=== PATIENT | female | born 1940 | race Caucasian/White ===

== ENCOUNTER 2018-02-12 20:58 | Emergency (ER) | payer OTHER ==
[~2018-02-12] VITALS: Ht 154.9 cm; Wt 49.9 kg
[~2018-02-12 20:58] MED LIST: ADULT ASPIRIN81 MG PO; ALLOPURINOL100 MG PO; AMLODIPINE BESY10 MG PO; ARICEPT10 M1 PO; ASPIRIN81 M3 PO; FAMOTIDINE20 MG PO; METOPROLOL TART25 MG PO; ONDANSETRO4 MG/UDTAB SL; POTASSIUM CHLO10 ME1 PO; PRAVASTATIN SOD40 MG PO; VITAMIN C500 M1; VITAMIN D-32000 UNIT PO; WOMEN'S DAILY1 EAC1 PO; Z.0.ALLOPURINOL100 M PO; Z.0.CARVEDILOL6.25 M PO; Z.0.COZAAR100 MG PO; Z.0.COZAAR25 MG; Z.0.CRESTOR10 MG PO; Z.0.DEXILANT30 MG PO; Z.0.WELLBUTRIN SR150 PO
[2018-02-12] MEDS ORDERED: LEVOFLOXACIN 750MG/D5W 150ML 150 ML IV SCH (22:30)
[2018-02-12] MEDS ORDERED: LEVOFLOXACIN 750MG/D5W 150ML 150 ML IV ONE (23:00)
[2018-02-12 23:10] VITALS: BP 144/70
== END 2018-02-12 23:30 | disposition home or self-care (01) ==
LOC: FSED 20:58
DX: S00.83XA Contusion of other part of head, initial encounter (principal); S30.0XXA Contusion of lower back and pelvis, initial encounter; W01.0XXA Fall on same level from slipping, tripping and stumbling without subsequent striking against object, initial encounter; Y92.008 Other place in unspecified non-institutional (private) residence as the place of occurrence of the external cause; N30.90 Cystitis, unspecified without hematuria; G30.9 Alzheimer's disease, unspecified; F02.80 Dementia in other diseases classified elsewhere, unspecified severity, without behavioral disturbance, psychotic disturbance, mood disturbance, and anxiety
CPT/HCPCS: 70450; 72131; 74176; 80053; 82553; 84484; 85025; 87086; 99284

== ENCOUNTER 2018-03-29 19:45 | Emergency (ER) | payer OTHER ==
[~2018-03-29] VITALS: Ht 154.9 cm; Wt 49.9 kg
--- NOTE | 2018-03-29 21:33 | Diagnostic Imaging Report ---
EXAM: PELVIS AP 1-2 VIEWS INDICATION: Fall today COMPARISON: None FINDINGS: BONES: No acute fractures. JOINTS: No malalignment. SOFT TISSUES: Surgical clips project over the abdomen and bilateral groins. Marked vascular calcifications. Oval calcification projected over the right iliac is likely an injection granuloma. IMPRESSION: No evidence of a pelvic fracture. Signed by: Dr. Muriel Horan M.D. on 03/29/2018 9:29 PM
--- NOTE | 2018-03-29 21:36 | Diagnostic Imaging Report ---
EXAM: CHEST SINGLE (PORTABLE), AP 1 view INDICATION: Fall, shoulder pain COMPARISON: None FINDINGS: LINES/TUBES: None LUNGS: No consolidations or edema. PLEURA: No effusions or pneumothorax. HEART AND MEDIASTINUM: Normal size and contour. BONES AND SOFT TISSUES: Questionable nondisplaced fracture of the proximal left humeral neck. IMPRESSION: No acute cardiopulmonary abnormality. Questionable nondisplaced fracture of the proximal left humeral neck. Recommend dedicated left shoulder views. Signed by: Dr. Muriel Horan M.D. on 03/29/2018 9:32 PM
--- NOTE | 2018-03-29 21:39 | Diagnostic Imaging Report ---
EXAM: SHOULDER LEFT 2 views, AP and Limited scapular view INDICATION: Fall, left shoulder pain COMPARISON: None FINDINGS: BONES: Questionable nondisplaced fracture of the left proximal humeral neck. JOINTS: Shoulder in internal rotation. Scapular view is nondiagnostic. SOFT TISSUES: Normal IMPRESSION: Questionable nondisplaced fracture of the left proximal humeral neck. Shoulder is in internal rotation. Scapular view is nondiagnostic. Recommend repeat attempt at routine views of the left shoulder and possible axial view. Signed by: Dr. Muriel Horan M.D. on 03/29/2018 9:35 PM
--- NOTE | 2018-03-29 21:58 | Diagnostic Imaging Report ---
Examination: CT CERVICAL SPINE WITHOUT CONTRAST HISTORY:Neck pain. Fall. COMPARISON:None. TECHNIQUE: Multidetector helical axial images were obtained without contrast from the foramen magnum to T1. Coronal and sagittal reformatted images were done. Bone and soft tissue windows were evaluated. FINDINGS: Alignment:Normal alignment and lordosis. Vertebrae: Normal height and density. No acute fracture, infection or neoplasm. Disc space heights: Moderately narrowed from C4 through C6. Caliber of spinal canal: Developmentally normal. Posterior fossa and craniocervical junction: Foramen magnum patent. No Chiari 1 malformation. Soft tissues: No abnormality. Degenerative changes: Disc osteophytes from C4-C5 through C6-C7 with moderate to severe left foraminal narrowing at all levels. No canal stenosis. Severe bilateral facet arthropathy fromC2 through C7. The remaining levels demonstrate no disc bulge/ herniation or foraminal or canal stenosis. IMPRESSION: No acute abnormalities. Signed by: Dr. Rubina Lerma M.D. on 03/29/2018 9:54 PM
--- NOTE | 2018-03-29 22:01 | Diagnostic Imaging Report ---
Examination: CT head without contrast Clinical Indication: Fall. Technique: Transaxial noncontrast images from the skull base through the vertex were obtained. Sagittal and coronal reformatted images were done. Comparison: 07/19/2015. Findings: Scalp: No abnormalities. Bones: Intact. No fractures. No blastic or lytic lesions. Brain sulci: Moderate volume loss for patient's age. Ventricles: No hydrocephalus. Extra-axial space: No abnormalities. Parenchyma: There are confluent areas of low-attenuation within subcortical and periventricular white matter, nonspecific, but could represent microvascular ischemic disease. No masses, hemorrhage, or acute or chronic cortical based vascular insults. Suprasellar region: No abnormalities. Craniocervical junction: The foramen magnum is patent. No Chiari one malformation. Incidental findings: Atherosclerotic calcification of the cavernous and supraclinoid internal carotid and V4 segments of the bilateral vertebral arteries. Impression: 1. No acute intracranial finding when compared to prior head CT from 2014. 2. Unchanged chronic microvascular ischemic change and volume loss. Signed by: Dr. Rubina Lerma M.D. on 03/29/2018 9:57 PM
[2018-03-29] MEDS ORDERED: TRAMADOL HCL 50 MG TAB ONE (23:08)
[2018-03-29] MEDS ORDERED: TRAMADOL HCL 50 MG TAB PO ONE (23:15)
== END 2018-03-29 23:17 | disposition home or self-care (01) ==
LOC: ER 19:45
DX: S42.302A Unspecified fracture of shaft of humerus, left arm, initial encounter for closed fracture (principal); W06.XXXA Fall from bed, initial encounter; Y93.84 Activity, sleeping; Y92.003 Bedroom of unspecified non-institutional (private) residence as the place of occurrence of the external cause; G30.9 Alzheimer's disease, unspecified; F02.80 Dementia in other diseases classified elsewhere, unspecified severity, without behavioral disturbance, psychotic disturbance, mood disturbance, and anxiety; I10 Essential (primary) hypertension; E78.5 Hyperlipidemia, unspecified; M10.9 Gout, unspecified
CPT/HCPCS: 70450; 71045; 72125; 72170; 99283